=== PATIENT | female | born 1990 | race American Indian/Alaskan Native ===

== ENCOUNTER 2025-03-10 22:49 | Emergency (ER) | payer OTHER | END 2025-03-11 02:35 | LOC: JP.ED 22:49 | DX: T40.411A Poisoning by fentanyl or fentanyl analogs, accidental (unintentional), initial encounter (principal); F17.200 Nicotine dependence, unspecified, uncomplicated; Z86.16 Personal history of COVID-19 | CPT/HCPCS: 99284 ==